=== PATIENT | female | born 1970 | race Caucasian/White ===

== ENCOUNTER → 2017-06-15 | Outpatient (CLI) | payer OTHER | LOC: BMCIMAGING 11:18 | PROVIDERS: ATTEND Family Medicine | DX: R05 Cough (principal); F17.210 Nicotine dependence, cigarettes, uncomplicated ==

== ENCOUNTER → 2017-10-28 | Outpatient (CLI) | payer OTHER | LOC: BMCIMAGING 12:07 | PROVIDERS: ATTEND Registered Nurse General Practice | DX: Z12.31 Encounter for screening mammogram for malignant neoplasm of breast (principal); Z80.3 Family history of malignant neoplasm of breast ==

== ENCOUNTER → 2017-12-14 | Outpatient (CLI) | payer OTHER | LOC: BMCIMAGING 12:23 | PROVIDERS: ATTEND Family Medicine | DX: R05 Cough (principal) ==

== ENCOUNTER 2017-12-24 13:01 | Emergency (ER) | payer OTHER ==
[2017-12-24 13:08] VITALS: BP 165/99
[2017-12-24] MEDS ORDERED: IBUPROFEN 600 MG TAB PO ONE (13:09)
--- NOTE | 2017-12-24 13:51 | EDPHY ---
H & P Stated Complaint: L ankle injury Time Seen by Provider: 12/24/17 13:47 HPI/ROS: CHIEF COMPLAINT: Left ankle pain HISTORY OF PRESENT ILLNESS: 47-year-old female presents with left ankle pain. She was walking in grass and twisted her ankle just prior to arrival. Immediate onset severe pain and swelling. Unable to bear weight. No other injuries. ROS: No numbness, weakness, excessive bleeding, syncopal episode, other injury. - Personal History LMP (Females 10-55): Hysterectomy Current Tetanus/Diphtheria Vaccine: No Current Tetanus Diphtheria and Acellular Pertussis (TDAP): No - Medical/Surgical History Hx Asthma: Yes Hx Chronic Respiratory Disease: No Hx Diabetes: Yes Hx Cardiac Disease: No Hx Renal Disease: No Hx Cirrhosis: No Hx Alcoholism: No Hx HIV/AIDS: No Hx Splenectomy or Spleen Trauma: No Other PMH: hysterectomy, HTN, asthma, DM - Social History Smoking Status: Former smoker - Physical Exam Exam: Alert, pleasant Extremities: Left ankle with swelling over the lateral malleolus. There is no posterior lateral malleolus tenderness, midfoot tenderness, or proximal fifth metatarsal tenderness. The ankle is stable and the Achilles tendon is intact. Vascular: Pedal pulses 2+ Neurologic: Ankle and foot with normal sensation and strength Skin: Intact Constitutional: Initial Vital Signs Temperature (C) 37.1 C 12/24/17 13:05 Heart Rate 74 12/24/17 13:05 Respiratory Rate 16 12/24/17 13:05 Blood Pressure 165/99 H 12/24/17 13:05 O2 Sat (%) 95 12/24/17 13:05 O2 Delivery Mode Room Air Allergies/Adverse Reactions: No Known Allergies Allergy (Unverified 12/24/17 13:05) Home Medications: Medication Instructions Recorded Atenolol 12/24/17 HCTZ (*) 12/24/17 Lisinopril 12/24/17 Metformin HCl 12/24/17 Medical Decision Making - Diagnostics Imaging Results: X-ray independently reviewed by me reveals no acute fracture. ED Course/Re-evaluation: This patient presents with an ankle sprain. Ankle stirrup splint placed. She has crutches at home. Follow-up instructions given. - Data Points Medications Given: Discontinued Medications Ibuprofen (Motrin) 600 mg PO EDNOW ONE Stop: 12/24/17 13:10 Last Admin: 12/24/17 13:12 Dose: 600 mg Departure - Departure Disposition: Home, Routine, Self-Care Clinical Impression: Left ankle sprain Qualifiers: Encounter type: initial encounter Involved ligament of ankle: anterior talofibular ligament Qualified Code(s): S93.492A - Sprain of other ligament of left ankle, initial encounter Condition: Good Instructions: Ankle Sprain (ED), Ankle Stirrup Splint (ED) Additional Instructions: Take Tylenol 650 mg every 4 hours and/or Ibuprofen 600 mg every 8 hours with food as needed for pain. Apply ice for 30 minutes at a time; 2-3 times per day for the next 1-2 days. Follow up with Orthopedics in 2-4 weeks if symptoms persist or worsening at which time they will evaluate and recommend with you if conservative management versus adjuvant therapy like further imaging is indicated. The x-rays obtained in the emergency department today demonstrate no evidence of an obvious fracture. Referrals: Kalie Allen MD [Primary Care Provider] - As per Instructions Darnell Brown MD [Medical Doctor] - As per Instructions
== END 2017-12-24 14:14 | disposition home or self-care (01) ==
DX: S93.492A Sprain of other ligament of left ankle, initial encounter (principal); I10 Essential (primary) hypertension; J45.909 Unspecified asthma, uncomplicated; E11.9 Type 2 diabetes mellitus without complications; Z87.891 Personal history of nicotine dependence; Z79.84 Long term (current) use of oral hypoglycemic drugs; X50.9XXA Other and unspecified overexertion or strenuous movements or postures, initial encounter; Y92.89 Other specified places as the place of occurrence of the external cause; Y99.8 Other external cause status; Y93.01 Activity, walking, marching and hiking
CPT/HCPCS: L4350

== ENCOUNTER → 2018-06-15 | Outpatient (CLI) | payer OTHER | LOC: BMCIMAGING 09:04 | PROVIDERS: ATTEND Family Medicine | DX: R05 Cough (principal); R07.9 Chest pain, unspecified; I10 Essential (primary) hypertension ==

== ENCOUNTER 2018-06-22 14:32 | Observation (INO) | payer OTHER ==
--- NOTE | 2018-06-22 14:58 | EDPHY ---
H & P Stated Complaint: abnl stress test Time Seen by Provider: 06/22/18 14:35 HPI/ROS: Clinical Impression: Abnormal stress test, nausea, coronary artery ischemia Assessment/Plan: 48-year-old female with past medical history of poorly-controlled hypertension and type 2 diabetes presents to the emergency department after reportedly having an abnormal stress test yesterday which was ordered by her PCP. We were able to speak to Dr. Andino with [facility] cardiology group who stated the patient 's stress test revealed mid LAD ischemia. Patient received a call from her PCP today to come to the ED. She is symptom-free today but reports having chest pain 2 weeks ago. Troponin negative, labs were reassuring, chest x-ray with no acute cardiopulmonary disease. EKG with flipped T-waves V1, V2, no J-point elevation or acute ST wave elevation. EKG reviewed with Dr. Boyle. I spoke with Dr. Elaine from [facility] who came to the ED to evaluate the patient. He will plan on admitting the patient given her significant comorbidities and risk factors, manage her hypertension and plan to proceed with catheterization tomorrow. Patient agreed with this plan. She was stable for admission to Dr. Elaine service. Case discussed with Dr. Boyle. Differential Dx: Chest pain including but not limited to myocardial ischemia, pulmonary embolus, chest wall pain, pleural inflammation and pulmonary infectious causes. ED Course: 1505: Case discussed with Dr. Elaine from [facility]. He will come to the ED to consult on the patient. 1545: Discussed with Dr. Andino, [facility] covering for [facility]. He read patient's stress report and states she appears to have mid LAD ischemia. Dr. Elaine in the ED at this time and will see the patient here with probable outpatient follow-up. 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 Patient reports 2 weeks ago she had stabbing left anterior chest pain and saw her primary care doctor. She reportedly had a normal chest x-ray and EKG. She has been taking albuterol for possible bronchitis. One week ago she developed shortness of breath that resolved 4 days ago. During this entire 2 week period of time she has also had nausea. She was seen at [facility] on [address] and had a stress test yesterday and an echocardiogram today. She received a call yesterday and today stating that her studies were abnormal and that she"looked like she had a blockage and she should go to the emergency room ". Patient is currently chest pain-free, denies shortness of breath but is complaining of persistent nausea. No personal or family history of cardiac disease. No asymmetric leg swelling or history of PE. She quit smoking many years ago. She is compliant with metoprolol and metformin. PMH: Type 2 diabetes, hypertension Pertinent Past Surgical History: Noncontributory Family History: No reported family history of cardiovascular disease Social History: Quit smoking 5 years ago, intermittent alcohol use ROS: All other systems negative Constitutional: No fever, no chills, appetite change. Eyes: No discharge, vision change Cardiovascular: No chest pain, no palpitations. Respiratory: No cough, no shortness of breath. Gastrointestinal: No abdominal pain, no vomiting, diarrhea. Genitourinary: No hematuria, dysuria, flank pain, pelvic pain Musculoskeletal: No back pain, joint swelling, joint pain, myalgias. Skin: No rashes, color change. Neurological: No headache, dizziness, weakness. Physical Exam: General Appearance: Alert, oriented, appropriate, cooperative, NAD, well hydrated, non-toxic appearing, VSS, no hypoxia. Eyes: PERRLA, no acute vision change, nystagmus, swelling, discharge, pain or photosensitivity. Conjunctiva pink, no pallor or injection Neck: Supple, nontender, no lymphadenopathy, no midline pain, FROM, no meningismus. Respiratory: There are no retractions, lungs are clear to auscultation. Cardiac: Regular rate and rhythm, no murmurs or gallops. Gastrointestinal: Abdomen is soft, nontender, bowel sounds normal, no masses/ hernia, no rigidity, guarding or focal peritoneal findings. Neurological: Alert and oriented x 3, CN 2-12 grossly intact, normal gait no ataxia, DTR's intact, normal sensation and strength Skin: Warm, dry, no rashes, no nodules on palpation. Musculoskeletal: Extremities are symmetrical, full range of motion, no tenderness, deformity, swelling, or erythema, no calf swelling, tenderness or erythema Psychiatric: Patient is oriented X 3, there is no agitation. MDM: Patient was seen independently by established practice protocols. Secondary supervising physician at time of evaluation was Dr Boyle . Diagnosis: Abnormal stress test, nausea coronary artery ischemia. New, requires workup Summary: See Assessment and Plan for summary of ED visit Clinical lab tests: ordered / reviewed. Independent visualization of images, tracing, or specimens: Yes. Decision to obtain medical records or history from someone other than the patient: Dr. Andino, [facility] cardiology Review / Summarize previous medical records: Dr. Rick with [facility] via [facility] indicate the patient had mid LAD ischemia on stress test yesterday Discussed patient with another provider: Dr. Boyle, Dr. Andino, Dr. Elaine Risk of comlications, morbidity, mortality: Presenting problem high Diagnostic procedures moderate Management Options moderate Patient Progress: Stable . - Personal History LMP (Females 10-55): Hysterectomy Current Tetanus Diphtheria and Acellular Pertussis (TDAP): Yes - Medical/Surgical History Hx Asthma: Yes Hx Chronic Respiratory Disease: No Hx Diabetes: Yes Hx Cardiac Disease: No Hx Renal Disease: No Hx Cirrhosis: No Hx Alcoholism: No Hx HIV/AIDS: No Hx Splenectomy or Spleen Trauma: No Other PMH: hysterectomy, HTN, asthma, DM II - Social History Smoking Status: Former smoker Constitutional: Initial Vital Signs Temperature (C) 37.1 C 06/22/18 14:40 Blood Pressure 175/137 H 06/22/18 14:40 O2 Delivery Mode Room Air Allergies/Adverse Reactions: No Known Allergies Allergy (Unverified 12/24/17 13:05) Home Medications: Medication Instructions Recorded Atenolol 12/24/17 HCTZ (*) 12/24/17 Lisinopril 12/24/17 Metformin HCl 12/24/17 Metoprolol Tartrate 06/22/18 Medical Decision Making - Diagnostics Imaging Results: Imaging Impressions Chest X-Ray 06/22/18 14:56 Impression: 1. No acute pulmonary disease. 2. Consider chest two views when the patient's medical condition permits. - Data Points Laboratory Results: Laboratory Results 06/22/18 15:14 06/22/18 15:14 06/22/18 06/22/18 06/22/18 15:14 15:14 14:53 WBC 8.45 10^3/uL 10^3/uL (3.80-9.50) RBC 4.47 10^6/uL 10^6/uL (4.18-5.33) Hgb 14.0 g/dL g/dL (12.6-16.3) Hct 40.5 % % (38.0-47.0) MCV 90.6 fL fL (81.5-99.8) MCH 31.3 pg pg (27.9-34.1) MCHC 34.6 g/dL g/dL (32.4-36.7) RDW 12.9 % % (11.5-15.2) Plt Count 222 10^3/uL 10^3/uL (150-400) MPV 11.9 fL H fL (8.7-11.7) Neut % (Auto) 48.0 % % (39.3-74.2) Lymph % (Auto) 38.9 % % (15.0-45.0) [place] % (Auto) 6.6 % % (4.5-13.0) Eos % (Auto) 5.2 % % (0.6-7.6) Baso % (Auto) 0.7 % % (0.3-1.7) Nucleat RBC Rel Count 0.0 % % (0.0-0.2) Absolute Neuts (auto) 4.05 10^3/uL 10^3/uL (1.70-6.50) Absolute Lymphs (auto) 3.29 10^3/uL H 10^3/uL (1.00-3.00) Absolute Monos (auto) 0.56 10^3/uL 10^3/uL (0.30-0.80) Absolute Eos (auto) 0.44 10^3/uL H 10^3/uL (0.03-0.40) Absolute Basos (auto) 0.06 10^3/uL 10^3/uL (0.02-0.10) Absolute Nucleated RBC 0.00 10^3/uL 10^3/uL (0-0.01) Immature Gran % 0.6 % % (0.0-1.1) Immature Gran # 0.05 10^3/uL 10^3/uL (0.00-0.10) Sodium 137 mEq/L mEq/L (135-145) Potassium 3.5 mEq/L mEq/L (3.3-5.0) Chloride 100 mEq/L mEq/L (97-110) Carbon Dioxide 25 mEq/l mEq/l (22-31) Anion Gap 12 mEq/L mEq/L (6-14) BUN 19 mg/dL mg/dL (7-23) Creatinine 0.6 mg/dL mg/dL (0.6-1.0) Estimated GFR > 60 Glucose 119 mg/dL H mg/dL (70-100) Calcium 9.8 mg/dL mg/dL (8.5-10.4) POC Troponin I 0.00 ng/mL ng/mL (0.00-0.08) Point of Care Test Results: Chemistry 06/22/18 14:53 POC Troponin I 0.00 ng/mL ng/mL (0.00-0.08) Departure - Departure Disposition: [facility] Acute Clinical Impression: Abnormal stress test, Nausea Condition: Good
[2018-06-22 15:23] LABS: PLATELET COUNT 222 10^3/uL (150-400)
--- NOTE | 2018-06-22 16:18 | CPEKG ---
Test Reason : OPEN Blood Pressure : / mmHG Vent. Rate : 069 BPM Atrial Rate : 070 BPM P-R Int : 151 ms QRS Dur : 090 ms QT Int : 434 ms P-R-T Axes : 036 014 042 degrees QTc Int : 465 ms Sinus rhythm Borderline T abnormalities, anterior leads Confirmed by Naomi Boyle ([id number]) on 06/22/2018 4:18:01 PM Referred By: Confirmed By:Naomi Boyle
[2018-06-22] MEDS ORDERED: amLODIPine BESYLATE 5 MG TAB PO ONE (16:29)
[2018-06-22] MEDS ORDERED: LIDOCAINE 1% 300 MG/30 ML SDV ONE (16:50)
[2018-06-22] MEDS ORDERED: fentaNYL 100 MCG/2 ML INJ ONE (16:50)
[2018-06-22] MEDS ORDERED: IOPAMIDOL (ISOVUE-370) 150 ML BTL IV ONE (16:51)
[2018-06-22] MEDS ORDERED: MIDAZOLAM 2 MG/2 ML VIAL ONE (16:51)
[2018-06-22] MEDS ORDERED: ONDANSETRON DISINTEGRATING 4 MG TAB PO PRN (16:58)
[2018-06-22] MEDS ORDERED: ACETAMINOPHEN 325 MG TAB PO PRN (16:58)
[2018-06-22] MEDS ORDERED: ONDANSETRON 4 MG/2 ML VIAL IVP PRN (16:58)
[2018-06-22] MEDS ORDERED: FAMOTIDINE 20 MG TAB PO ONE (17:05)
[2018-06-22] MEDS ORDERED: diphenhydrAMINE 25 MG CAP PO ONE (17:05)
[2018-06-22] MEDS ORDERED: ASPIRIN EC 325 MG TAB PO ONE (17:05)
[2018-06-22] MEDS ORDERED: TEMAZEPAM 15 MG CAP PO PRN (17:05)
[2018-06-22] MEDS ORDERED: NITROGLYCERIN 0.4 MG BTL SL PRN (17:05)
[2018-06-22] MEDS ORDERED: DIAZEPAM 5 MG TAB PO ONE (17:05)
[2018-06-22] MEDS ORDERED: NS 1,000 ML IV SCH (17:15)
--- NOTE | 2018-06-22 17:42 | GHP ---
DATE OF ADMISSION: 06/22/2018 INDICATION FOR ADMISSION: Chest pain, shortness of breath, dyspnea on exertion , abnormal nuclear stress test performed yesterday demonstrating anterior wall ischemia in the setting of multiple coronary artery disease risk factors. HISTORY OF PRESENT ILLNESS: The patient is a pleasant 48-year-old female with a past medical history of diabetes for the last 2 years and history of hypertension since her early 20s, who has been experiencing intermittent episodes of substernal sharp nonradiating chest discomfort that is associated with shortness of breath and nausea and resolved spontaneously over the last 2 weeks. She also has been experiencing dyspnea on exertion, exertional intolerance and fatigue that has become progressively worse. She was seen by her primary care physician, Dr. Kalie Allen, who ordered an exercise nuclear stress test and echocardiogram. She did undergo a pharmacologic nuclear stress test yesterday at [facility]. She did not undergo an exercise study secondary to significant hypertension. Lexiscan nuclear stress test demonstrated apical, apical anterior and mid anterior ischemia. There was also evidence of marked transient ischemic dilatation. I have reviewed these findings with Dr. Sina Beltran from the [facility]. She also underwent an echocardiogram today demonstrating normal left ventricular function. Currently, at the time of my exam, the patient is resting comfortably. She is without chest pain. She was hypertensive initially on admission with a blood pressure of 175/137. She has no complaints of abdominal pain. No nausea, vomiting, or diaphoresis. No complaints of PND, orthopnea, or lower extremity edema. She denies palpitations, dizziness, lightheadedness, near syncope or syncope. PAST MEDICAL HISTORY: Diabetes x2 years, hypertension since her early 20s in the setting of familial history of hypertension. PAST SURGICAL HISTORY: Multiple plastic surgeries including rhinoplasty, bilateral breast augmentation and porcelain teeth implants. She has also undergone a hysterectomy. MEDICATIONS ON ADMISSION: Atenolol 100 mg daily, lisinopril 10 mg daily, hydrochlorothiazide 25 mg daily, and metformin 1800 mg daily. ALLERGIES: To medications, none. 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 She moved here a year ago with her family from [place]. She has 2 children. She is a current smoker. She smoked since the age of 18. FAMILY HISTORY: Notable for familial hypertension in her paternal grandmother, her father and her brothers. EXAM: VITAL SIGNS: Most recent blood pressure systolic 137/87, heart rate of 72 in sinus rhythm, respiratory rate of 12, oxygen saturation 97% on room air. GENERAL: She is awake, alert, oriented, appropriate. No apparent distress. NECK: There is no evidence of JVP or carotid bruits. LUNGS: Clear to auscultation bilaterally. CARDIAC: Exam is S1, S2. Regular rate and rhythm. No murmurs, rubs, or gallops. ABDOMEN: Soft, nontender, nondistended. There is no pulsatile mass or abdominal bruit. EXTREMITIES: There is no evidence of cyanosis, clubbing or edema. DATA: White blood cell count 8.45, hemoglobin of 14, hematocrit 40.5, platelet count 222. Sodium 137, potassium 3.5, chloride 100, bicarb 25, BUN 19, creatinine 0.6, glucose 119, calcium 9.8. ECG today demonstrates sinus rhythm at 69 beats per minute. She does have T- wave inversions and minimal ST depression in leads V1 through V3. No previous ECG for comparison. Chest x-ray demonstrates no acute pulmonary process. No evidence of cardiomegaly. IMPRESSION: 1. 2-week history of progressive substernal chest pain suggestive of unstable angina. 2. Positive nuclear stress test consistent with anterior wall ischemia, coupled with the presence of transient ischemic dilatation. 3. Hypertension. 4. Diabetes. 5. Smoking history. SUMMARY: The patient is a pleasant 48-year-old female with cardiac risk factors including diabetes, hypertension, and a 27-year history of smoking, who presents with a 2-week history of progressive substernal chest pain coupled with shortness of breath and nausea, as well as symptoms of dyspnea on exertion , fatigue and exertional intolerance, who was found to have anterior wall ischemia and transient ischemic dilatation on pharmacologic nuclear stress test performed yesterday at [facility]. In the setting of abnormal findings, coupled with multiple risk factors and coupled with abnormal ECG, I have recommended diagnostic left heart catheterization. The risks and benefits of left heart catheterization have been reviewed in detail. She is agreeable to pursue. She is not allergic to aspirin. She has no upcoming surgery. She has no contraindication to dual antiplatelet therapy. PLAN: 1. We will plan for diagnostic left heart catheterization to be performed today. 2. We will modify blood pressure medications throughout the course of her hospitalization. /[id number]/MODL MTDD
[2018-06-22] MEDS ORDERED: ATROPINE SULFATE 1 MG/10 ML SYR IVP PRN (17:58)
--- NOTE | 2018-06-22 20:53 | CPIP ---
DATE OF PROCEDURE: 06/22/2018 PROCEDURE PERFORMED: Left heart catheterization. INDICATION FOR PROCEDURE: Chest pain, multiple coronary artery disease risk factors including hypert ension, diabetes, and 27 year history of smoking, coupled with abnormal nuclear stress test consisten t with LAD ischemia performed yesterday at [facility]. PROCEDURE: After informed consent was obtained, the patient was brought to the cardiac catheterizati on lab, where she was prepped and draped in sterile fashion. Using 1% lidocaine, the right groin was anesthetized. Using the modified Seldinger technique with micropuncture technique, a 6-Bangladeshi sheat h was placed in the right common femoral artery without complications. A JL4 catheter was used to ta ke images of the left coronary artery in multiple projections. The JL4 catheter was exchanged over a guidewire for a JR4 catheter. JR4 catheter was used to take images of the right coronary artery. T he JR4 catheter was exchanged over a guidewire for angled pigtail catheter. Angled pigtail catheter was used to cross the aortic valve. Left ventriculogram was performed. LVEDP was assessed. Aortic valve gradient was assessed on pull-back. Angled pigtail catheter was removed over a guidewire witho ut complications. Imaging of the right common femoral artery was obtained, demonstrating appropriate placement of the 6-Bangladeshi sheath above the bifurcation and below the inguinal ligament. The patient underwent successful Angio-Seal deployment without complications. FINDINGS: 1. Left main is normal size and caliber, and bifurcates into left anterior descending and left circu mflex coronary artery. There is no evidence of coronary disease within the left main. 2. Left anterior descending artery gives rise to a large diagonal branch. There is no evidence of c oronary disease within the left anterior descending or diagonal branch. 3. Circumflex artery is a nondominant vessel. There is no evidence of coronary disease within the c ircumflex or small 1st obtuse marginal branch. 4. Right coronary artery is a large caliber dominant vessel that bifurcates into PDA and PLV branche s. There is no evidence of coronary disease within the right coronary artery. HEMODYNAMICS: LVEF 65%. LVEDP 17 mmHg. Aortic valve gradient none. CONCLUSION: 1. Normal coronary arteries. 2. Normal left ventricular function. 3. Mildly elevated LVEDP at 17 mmHg. 4. Successful Angio-Seal deployment. PLAN: 1. Patient will be admitted overnight to telemetry. 2. Will focus on optimizing blood pressure control. /[id number]/MODL
[2018-06-22] MEDS: CARVEDILOL 25 MG TAB PO SCH (23:41)
[2018-06-23 05:32] VITALS: BP 121/79
[2018-06-23] MEDS: CARVEDILOL 25 MG TAB PO SCH (08:17)
[2018-06-23] MEDS ORDERED: LISINOPRIL 20 MG TAB PO SCH (09:00)
--- NOTE | 2018-06-23 10:02 | PDCARPN ---
Cardiology Progress Note Chief Complaint: Chest pain Assessment/Plan: Assessment: 1. Chest pain. Normal coronary arteries on diagnostic left heart catheterization 06/22/2018. 2. Essential hypertension. Blood pressure has been suboptimally controlled. 3. Diabetes type 2 4. Smoking history 5. 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 B.i.d. -continue lisinopril-20 mg daily -continue hydrochlorothiazide 12.5 mg daily -check blood pressure twice daily until follow-up appointment with me next ThursdayJune 30 at 11:00 a.m. -goal blood pressure average of 120/80 -start atorvastatin 20 mg daily. LDL 139. In the setting of hypertension diabetes, would recommend aggressive treatment LDL to less than 70. -restart metformin Thursday06/25/2018 -[facility] [place] [facility] -follow-up with me in the office, 06/30/2018 at 11:00 a.m.. 06/23/18 10:03 Subjective: Casi is feeling well this AM. Brief episode of chest discomfort last night that resolved with change in position. Blood pressures been well controlled overnight. Left heart catheterization last evening demonstrated normal coronary arteries and normal left ventricular function. LVEDP mildly elevated at 17 mm of mercury. Right groin site without evidence of hematoma or ecchymosis. Mildly tender to palpation. Distal pulses intact. I reviewed her hospital stay with her primary care physician Dr. Allen. In the absence of any coronary disease on left heart catheterization, I think her nuclear imaging study was a false positive due to breast attenuation artifact in the setting of breast implants. I think her symptoms may be secondary to poorly controlled blood pressure. Lung disease may also be contributing given her 27 year smoking history coupled with a history of exposure to TB. Reviewed/Discussed With: family, multidisciplinary team Time Spent with Patient: greater than 25 minutes Time Spent with Patient: Greater than 25 minutes spent on this patients care, greater than 50% of time spent counseling, educating, and coordinating care regarding the above mentioned plan. Objective: Vital Signs (8 Hrs) Temp Pulse Resp BP Pulse Ox 06/23/18 07:31 37.0 C 70 16 121/79 H 93 06/23/18 04:00 36.7 C 69 12 121/79 H 93 Intake/Output (24 Hrs) 06/22/18 06/23/18 06/24/18 05:59 05:59 05:59 Intake Total 900 Balance 900 Intake: Oral (ml) 400 IV Intake (ml) 500 Other: Weight 71.6 kg Number of Voids Toilet 1 Result Diagrams: 06/22/18 15:14 06/22/18 15:14 - Physical Exam Cardiovascular: regular rate and rhythm, no murmurs, no rubs, no gallops, pulses symmetric bilat Peripheral Pulses: 2+: carotid (R), carotid (L) Respiratory: clear to auscultate bilat Musculoskeletal: no muscular tenderness Neurologic: AAOx3, CN II-XII grossly intact Psychiatric: cooperative, interactive ICD10 Worksheet Patient Problems: Problems Problem Status Onset Abnormal stress test Acute Nausea Acute
--- NOTE | 2018-06-23 10:42 | GDS ---
INDICATION FOR ADMISSION: Chest pain with multiple risk factors including smoking history, hypertens ion, and diabetes, coupled with abnormal pharmacologic nuclear stress test performed yesterday at [facility] demonstrating anterior wall ischemia. ADMISSION DIAGNOSES: 1. Chest pain. 2. Essential hypertension. 3. Type 2 diabetes. 4. Smoking history. HOSPITAL COURSE: The patient is a pleasant 48-year-old female who had been experiencing a 2-week his tory of intermittent episodes of substernal sharp nonradiating chest pain associated with shortness o f breath and nausea over the last 2 weeks. Her symptoms have been progressively worse. This prompte d her to seek medical attention with her primary care physician, Dr. Kalie Allen. She subsequentl y underwent a pharmacologic nuclear stress test. Of note, she underwent pharmacologic stress test se condary to the fact that she presented markedly hypertensive and not an appropriate candidate for exe rcise. Nuclear study demonstrated apical, mid anterior, and apex ischemia as well as transient ische toy dilatation. The patient had been contacted by the [facility] informing her that her nuclear study was abnormal and received a recommendation that she should present to [facility] for further evaluation. At the time of my examination, she was pain free. I was able to review her nuclear stress test resul ts with Dr. José Mathew of [facility] who is covering [facility]. I had recommended diagnostic left heart catheterization. Left heart catheterization last evening demonstrated normal coronary arteries with LVEF of 65% to 70% . LVEDP mildly elevated at 17 mmHg. Her postoperative course was unremarkable. Her blood pressures remained well controlled, and she is stable for discharge home. DISCHARGE EXAMINATION: HEART: Demonstrates regular rate and rhythm. No murmurs, rubs, or gallops. LUNGS: Clear to auscultation bilaterally. ABDOMEN: Right groin site is without hematoma or ecchym osis. Right groin site is mildly tender to palpation. EXTREMITIES: Distal pulses are intact. DISCHARGE MEDICATIONS: 1. Coreg 12.5 mg p.o. b.i.d. 2. Lisinopril 20 mg daily. 3. Hydrochlorothiazide 12.5 mg daily. 4. Atorvastatin 20 mg daily. 5. Metformin 850 mg p.o. b.i.d. 6. Advair inhaler p.r.n. ALLERGIES: To medications none. NEW MEDICATIONS: During this hospitalization: 1. Coreg 12.5 mg p.o. b.i.d. 2. Atorvastatin 20 mg daily. DISCONTINUED MEDICATIONS: During this hospitalization: Atenolol. PLAN: At time of discharge: 1. The patient will be given prescriptions for Coreg and atorvastatin. 2. Patient is scheduled to be seen by [facility] on June. 3. Followup with me in our office at [facility] on June 30, at 11 a.m. 4. Patient has been given post left heart catheterization instructions. 5. Patient's case has been reviewed in detail with Dr. Kalie Allen, her primary care physician. /[id number]/MODL
--- NOTE | 2018-06-23 11:16 | ASDISCHSUM ---
Discharge Information Plan Status:Home with No Needs Medically Cleared to Leave:06/22/2018 Discharge Date:06/22/2018 CM D/C Disposition:Home, Routine, Self-Care ADT D/C Disposition:Home, Routine, Self-Care Projected Discharge Date:06/22/2018 Transportation at D/C:Family Discharge Delay Reason: Follow-Up Date:06/22/2018 Discharge Slot: Final Diagnosis: Placement Information Patient Contact Information Contact Name:KAMALJIT Relationship:Other Address: Work Phone: City: [facility] Phone: State/Zip Code: Email: Financial Information Financial Class:[facility] Primary Plan Desc:QUAN O HMO OPEN ACC LOCAL Primary Plan Number:[id number] Secondary Plan Desc: Secondary Plan Number: Assessment Information LACE LACE Length of stay for Answers: Less than 1 day current admission Acuity / Level of Answers: No Care: Did the patient have an inpatient admission? Comorbidities - select Answers: Diabetes (uncontrolled or all that apply controlled) Other Notes: HTN # of Emergency department Answers: 1-2 visits in the last 6 months Score: 3 Date Signed: 06/23/2018 11:15 AM Electronically Signed By:Katey Jay RN Intervention Information
[2018-06-24] MEDS ORDERED: ATORVASTATIN CALCIUM 20 MG TAB PO SCH (09:00)
== END 2018-06-23 13:25 | disposition home or self-care (01) ==
LOC: F2W 18:35
PROVIDERS: ADMIT Internal Medicine Cardiovascular Disease; ATTEND Internal Medicine Cardiovascular Disease
DX: R07.9 Chest pain, unspecified (principal); I10 Essential (primary) hypertension; E11.9 Type 2 diabetes mellitus without complications; Z87.891 Personal history of nicotine dependence
CPT/HCPCS: 71045; 93005; 93458; 99285; G0378; G0379; 84484-PO; C1760; J1644; J2250; J3010; Q9967

== ENCOUNTER → 2018-06-30 | Outpatient (CLI) | payer OTHER | LOC: FIMAGING 12:21 | PROVIDERS: ATTEND Internal Medicine Cardiovascular Disease | DX: M79.604 Pain in right leg (principal) ==

== ENCOUNTER 2018-08-30 12:43 | Emergency (ER) | payer OTHER ==
[2018-08-30] MEDS ORDERED: NS 1,000 ML IV ONE (13:54)
[2018-08-30] MEDS ORDERED: KETOROLAC 30 MG/1 ML SDV IVP ONE (13:54)
--- NOTE | 2018-08-30 13:58 | EDPHY ---
H & P Stated Complaint: R FLANK/ABD PAIN HEMATURIA AT DR'S OFFICE - Personal History LMP (Females 10-55): Hysterectomy Current Tetanus Diphtheria and Acellular Pertussis (TDAP): Yes - Medical/Surgical History Hx Asthma: Yes Hx Chronic Respiratory Disease: No Hx Diabetes: Yes Hx Cardiac Disease: No Hx Renal Disease: No Hx Cirrhosis: No Hx Alcoholism: No Hx HIV/AIDS: No Hx Splenectomy or Spleen Trauma: No Other PMH: hysterectomy, HTN, asthma, DM II, ovarian cyst. - Family History Significant Family History: Other (Kidney stones) - Social History Smoking Status: Former smoker Alcohol Use: Sober Drug Use: None Time Seen by Provider: 08/30/18 13:46 HPI/ROS: CHIEF COMPLAINT: Right flank pain HISTORY OF PRESENT ILLNESS: 48-year-old female presents with right flank pain. Onset right-sided back pain 1 week ago. The pain has gradually increases and now radiates to the right lower quadrant. The pain waxes and wanes and is associated with nausea. Unable to sleep last night because of pain. Taking Tylenol without relief. Seen by her PCP this morning. Urinalysis revealed microscopic hematuria. Sent here for further evaluation. No prior history of kidney stones. REVIEW OF SYSTEMS: complete 10 point ROS reviewed and is negative except for the noted elements in the HPI (Naomi Boyle S) - Physical Exam Exam: General Appearance: Alert, pleasant Eyes: Pupils equal and round, no conjunctival pallor ENT, Mouth: Mucous membranes moist Neck: Normal inspection Respiratory: Lungs are clear to auscultation Cardiovascular: Regular rate and rhythm Gastrointestinal: Abdomen is soft, right lower quadrant tenderness greater than right upper quadrant tenderness Back: Normal inspection, no paraspinous tenderness or CVA tenderness Neurological: A&O, nonfocal, normal gait Skin: Warm and dry, no rash Extremities: Normal inspection Psychiatric: Mood and affect normal (Naomi Boyle S) Constitutional: Initial Vital Signs Temperature (C) 36.9 C 08/30/18 12:48 Heart Rate 100 08/30/18 12:48 Respiratory Rate 18 08/30/18 12:48 Blood Pressure 142/101 H 08/30/18 12:48 O2 Sat (%) 95 08/30/18 12:48 O2 Delivery Mode Room Air Allergies/Adverse Reactions: No Known Allergies Allergy (Verified 08/30/18 12:47) Home Medications: Medication Instructions Recorded Fluticasone/Salmeterol [Advair Hfa 2 puffs IH BID 06/22/18 115-21 Mcg Inhaler] Herbals/Supplements -Info Only 1 ea PO DAILY 06/22/18 Atorvastatin Calcium [Lipitor 20 20 mg PO DAILY #30 tab 06/23/18 mg (*)] Carvedilol [Coreg (*)] 12.5 mg PO BIDMEAL #60 tab 06/23/18 Lisinopril [Zestril 20 mg (*)] 20 mg PO DAILY #30 tab 06/23/18 metFORMIN HCL [Glucophage 850 mg 850 mg PO BIDMEAL #0 06/23/18 (*)] Hydrocodone/APAP 5/325 [[place] 1 - 2 tab PO Q4H PRN #10 tab 08/30/18 5/325] Medical Decision Making - Diagnostics Imaging: Discussed imaging studies w/ communication electronic technician Radiologist - Diagnostics Imaging Results: Ultrasound of the pelvis reviewed by me and discussed with Radiology shows a the right-sided 1 cm ovarian cyst. No other pathology noted. Status post hysterectomy (Gagan Browne) ED Course/Re-evaluation: Re-evaluation by me at 3:55 p.m. Patient is stable. She and I discussed imaging and lab results. We discussed treatment plan including criteria for return and importance of follow-up and further evaluation. She expresses understanding and agreement. She would like something for pain has apparently the pain was quite severe last night. She would also like note from work. ( Gagan Browne) This patient presents with right flank pain radiating to the right lower quadrant. Toradol 15 mg IV given with relief in pain. CT of the abdomen/ pelvis obtained to rule out kidney stone or appendicitis. CT scan is unremarkable, and a normal appearing appendix was clearly visualized. Results discussed with the patient and her family. She remains concerned that she may have an ovarian cyst. A pelvic ultrasound was ordered. (Naomi Boyle) Differential Diagnosis: Differential diagnosis includes though it is not limited to appendicitis, ovarian cysts, cholecystitis, diverticulitis, pyelonephritis, bowel perforation , small bowel obstruction. (Naomi Boyle) - Data Points Laboratory Results: Laboratory Results 08/30/18 13:55 08/30/18 13:55 Medications Given: Discontinued Medications Sodium Chloride (Ns) 1,000 mls @ 0 mls/hr IV EDNOW ONE; Wide Open PRN Reason: Protocol Stop: 08/30/18 13:55 Last Admin: 08/30/18 14:04 Dose: 1,000 mls Ketorolac Tromethamine (Toradol) 15 mg IVP EDNOW ONE Stop: 08/30/18 13:55 Last Admin: 08/30/18 14:05 Dose: 15 mg Point of Care Test Results: Chemistry 08/30/18 14:10 POC Sodium 140 mEq/L mEq/L (135-145) POC Potassium 3.4 mEq/L mEq/L (3.3-5.0) POC Chloride 102 mEq/L mEq/L (97-110) POC BUN 11 mg/dL mg/dL (7-23) POC Creatinine 0.6 mg/dL mg/dL (0.6-1.0) POC Glucose 119 mg/dL H mg/dL (70-100) ISTAT H&H 08/30/18 14:10 POC Hgb 15.6 gm/dL gm/dL (12.6-16.3) POC Hct 46 % % (38-47) Departure - Departure Disposition: Home, Routine, Self-Care Clinical Impression: Back pain Qualifiers: Back pain location: low back pain Chronicity: acute Back pain laterality: right Sciatica presence: without sciatica Qualified Code(s): M54.5 - Low back pain Abdominal pain Qualifiers: Abdominal location: right lower quadrant Qualified Code(s): R10.31 - Right lower quadrant pain Ovarian cyst Qualifiers: Laterality: right Qualified Code(s): N83.201 - Unspecified ovarian cyst, right side Condition: Good Instructions: Acute Abdominal Pain (ED), Acute Low Back Pain (ED), Ovarian Cyst (ED) Additional Instructions: Ibuprofen 600 mg 3 times daily while the pain persists. Hydrocodone in addition for pain if needed. May take this in addition to the ibuprofen Return for worsening symptoms Re-evaluation by Dr. Allen in the next 1-2 days. Referrals: Kalie Allen MD [Primary Care Provider] - 1-2 days without fail Stand Alone Forms: Work Excuse Prescriptions: Hydrocodone/APAP 5/325 [[place] 5/325] 1 - 2 tab PO Q4H PRN #10 tab PRN Reason: Pain, Moderate
[2018-08-30 14:13] LABS: PLATELET COUNT 193 10^3/uL (150-400)
[2018-08-30 16:21] VITALS: BP 135/90
== END 2018-08-30 16:21 | disposition home or self-care (01) ==
DX: M54.5 Low back pain (principal); R10.31 Right lower quadrant pain; N83.201 Unspecified ovarian cyst, right side; E86.9 Volume depletion, unspecified; I10 Essential (primary) hypertension; Z90.710 Acquired absence of both cervix and uterus
CPT/HCPCS: 82435-PO; 82565-PO; 82947-PO; 84132-PO; 84295-PO; 84520-PO; 85014-ER; 96374; J1885

== ENCOUNTER → 2018-11-05 | Outpatient (CLI) | payer OTHER | LOC: BMCIMAGING 16:08 | PROVIDERS: ATTEND Family Medicine | DX: R22.41 Localized swelling, mass and lump, right lower limb (principal) ==

== ENCOUNTER → 2018-11-19 | Outpatient (CLI) | payer OTHER ==
[~2018-11-19] MED LIST: IOPAMIDOL (ISOVUE 370) 100 ML BTL IV ONE
== END ==
LOC: FIMAGING 14:46
PROVIDERS: ATTEND Internal Medicine Cardiovascular Disease
DX: R51 Headache (principal); Z82.49 Family history of ischemic heart disease and other diseases of the circulatory system; M79.604 Pain in right leg; R20.0 Anesthesia of skin; R10.31 Right lower quadrant pain
CPT/HCPCS: 82565-PO; Q9967